=== PATIENT | female | born 1945 | race Caucasian/White ===

== ENCOUNTER 2018-07-10 06:41 | Day surgery (SDC) | payer MEDICARE ==
[~2018-07-10] VITALS: Ht 160 cm; Wt 168.6 kg
[2018-07-10 07:00] VITALS: BP 153/69
[2018-07-10] MEDS ORDERED: cefazolin/dext.iso 2gm/100ml 100 ML IV ONE (07:10)
[2018-07-10] MEDS ORDERED: normal saline 1000ml 1,000 ML IV PRN (07:10)
[2018-07-10] MEDS ORDERED: LEVO175T2 PO (07:35)
[2018-07-10] MEDS ORDERED: ALBU8.5H8 INH (07:35)
[2018-07-10] MEDS ORDERED: GABA-532 PO (07:35)
[2018-07-10] MEDS ORDERED: LANTUS SQ (07:35)
[2018-07-10] MEDS ORDERED: FURO40TA4 PO (07:35)
[2018-07-10] MEDS ORDERED: PANT40TA4 PO (07:35)
[2018-07-10] MEDS ORDERED: HYDR-4070 PO (07:35)
[2018-07-10] MEDS ORDERED: ATOR40TA PO (07:35)
[2018-07-10] MEDS ORDERED: LEVO200T8 PO (07:35)
[2018-07-10] MEDS ORDERED: INSU100I8 SQ (07:35)
[2018-07-10] MEDS ORDERED: AMLO-314 PO (07:35)
[2018-07-10] MEDS ORDERED: DOXA2TAB6 PO (07:35)
[2018-07-10] MEDS ORDERED: LABE100T5 PO (07:35)
[2018-07-10] MEDS ORDERED: NITR0.4T48 SL (07:35)
[2018-07-10] MEDS ORDERED: LISI-600 PO (07:35)
[2018-07-10] MEDS ORDERED: ISOS60TA4 PO (07:35)
[2018-07-10] MEDS ORDERED: HYDR-3972 PO (07:35)
[2018-07-10] MEDS ORDERED: LIDOcaine 1%/PF 5ML 10 MG/ML VIAL ONE (08:42)
[2018-07-10] MEDS ORDERED: fentaNYL/PF 50MCG/1 ML 2ML syringe IV PRN (08:45)
[2018-07-10] MEDS ORDERED: LIDOcaine 1%/PF 5ML 10 MG/ML VIAL SQ ONE (08:45)
[2018-07-10] MEDS ORDERED: heparin 1,000 units/ml 10ml inj ICATH ONE (08:45)
[2018-07-10] MEDS ORDERED: cefazolin/dext.iso 2gm/50ml 50 ML IV ONE (08:46)
[2018-07-10] MEDS ORDERED: heparin 1,000unit/ml 10ml vial 10 ML ONE (08:50)
[2018-07-10] MEDS ORDERED: fentaNYL/PF 50MCG/1 ML 2ML syringe ONE (08:50)
[2018-07-10 09:49] VITALS: BP 137/61
[2018-07-10 10:00] VITALS: BP 138/85
[2018-07-10 10:15] VITALS: BP 126/86
[2018-07-10 10:30] VITALS: BP 134/83
== END 2018-07-10 11:05 | disposition home or self-care (01) ==
LOC: SSTAY O 06:41
PROVIDERS: ATTEND Radiology Diagnostic Radiology
DX: T82.898A Other specified complication of vascular prosthetic devices, implants and grafts, initial encounter (principal); Y83.8 Other surgical procedures as the cause of abnormal reaction of the patient, or of later complication, without mention of misadventure at the time of the procedure; I12.0 Hypertensive chronic kidney disease with stage 5 chronic kidney disease or end stage renal disease; N18.6 End stage renal disease; E11.22 Type 2 diabetes mellitus with diabetic chronic kidney disease; E03.9 Hypothyroidism, unspecified; Z98.51 Tubal ligation status; Z90.710 Acquired absence of both cervix and uterus; Z98.890 Other specified postprocedural states; Z79.899 Other long term (current) drug therapy; Z88.8 Allergy status to other drugs, medicaments and biological substances; Z79.4 Long term (current) use of insulin
CPT/HCPCS: 36581; 77001; 82948; C1750; C1769; J0690; J1644; J2001; J3010; J7030; A9270

== ENCOUNTER 2018-10-16 17:35 | Inpatient (IN) | payer MEDICARE, OTHER ==
[~2018-10-16] VITALS: Ht 157.5 cm; Wt 161.8 kg
[~2018-10-16 17:35] MED LIST: ALBU8.5H8 INH; AMLO-314 PO; ATOR40TA PO; DOXA2TAB6 PO; FURO40TA4 PO; GABA-532 PO; HYDR-3972 PO; HYDR-4070 PO; INSU100I8 SQ; ISOS60TA4 PO; LABE100T5 PO; LANTUS SQ; LEVO175T2 PO; LISI-600 PO; NITR0.4T48 SL; PANT40TA4 PO
[2018-10-16 20:22] LABS: BASOPHILS # (AUTO) 0.1 X10'3 (0-0.2); BASOPHILS % (AUTO) 0.7 % (0-1); EOSINOPHILS # (AUTO) 0.2 X10'3 (0-0.9); EOSINOPHILS % (AUTO) 2.2 % (0-6); HEMATOCRIT 37.6 % (35.0-45.0); HEMOGLOBIN 12.5 g/dl (12.0-16.0); LYMPHOCYTES # (AUTO) 1.2 X10'3 (1.1-4.8); LYMPHOCYTES % (AUTO) 12.6 % (21-51); MEAN CORPUSCULAR HEMOGLOBIN 31.2 PG (27.0-31.0); MEAN CORPUSCULAR HGB CONC 33.3 g/dL (33.0-36.5); MEAN CORPUSCULAR VOLUME 93.7 FL (78-98); MEAN PLATELET VOLUME 7.8 FL (7.4-10.4); MONOCYTES # (AUTO) 1.1 X10'3 (0-0.9); NEUTROPHILS # (AUTO) 7.1 X10'3 (1.8-7.7); NEUTROPHILS % (AUTO) 73.5 % (42-75); PLATELET COUNT 215 X10'3 (140-440); RED BLOOD COUNT 4.01 X10'6 (4.20-5.60); RED CELL DISTRIBUTION WIDTH 17.9 % (11.5-14.5); WHITE BLOOD COUNT 9.6 X10'3 (4.5-11.0)
[2018-10-16 20:25] LABS: ALANINE AMINOTRANSFERASE 23 U/L (12-78); ALBUMIN 3.4 G/DL (3.4-5.0); ALBUMIN/GLOBULIN RATIO 0.9 (1.1-1.5); ALKALINE PHOSPHATASE 111 IU/L (46-116); ANION GAP 10 (8-16); ASPARTATE AMINO TRANSFERASE 13 U/L (10-37); BILIRUBIN,TOTAL 0.4 MG/DL (0.1-1.0); BLOOD UREA NITROGEN 61 MG/DL (7-18); BUN/CREATININE RATIO 8.6 (6.6-38.0); CALCIUM 9.4 MG/DL (8.5-10.1); CHLORIDE 100 MMOL/L (99-107); CREATININE 7.13 MG/DL (0.40-0.90); GLUCOSE 289 MG/DL (70-104); POTASSIUM 5.2 MMOL/L (3.5-5.1); SODIUM 136 MMOL/L (135-145); TOTAL CARBON DIOXIDE 25.9 MMOL/L (24-32); TOTAL PROTEIN 7.4 G/DL (6.4-8.2); eGFR 6 ML/MIN
[2018-10-16 20:27] LABS: MAGNESIUM 2.4 MG/DL (1.5-2.4)
--- NOTE | 2018-10-16 20:35 | NUR ---
RIGHT UPPER CHEST DUAL LUMEN HD PORT; 1 INCH INCISION WELL APPROXIMATED: SUPERIOR TO PAULINA CATH; RIGHT BASE OF NECK VERY SMALL INSION WELL APPROXIMATED PATIENT STATED THAT HD CATHETER WAS BLEEDING TODAY: DRSG CHANGED AT DIALYSIS TODAY : PATIENT CAN NOT TOLERATED TEGADERMS: IRRITATES HER SKIN. PER PATIENT SHE HAS HAD 7 PAULINA CATHETERS FOR HD PLACED SINCE MARCH 2018 PER DIALYSIS RECORDS: CATH FLOW WAS ADMINISTERED ON 10/02 AND 10/14/2018
[2018-10-16 21:05] LABS: PHOSPHORUS 5.9 MG/DL (2.3-4.5)
[2018-10-16] MEDS ORDERED: acetaminophen 650mg rectal suppository RC PRN (21:40)
[2018-10-16] MEDS ORDERED: glucagon, human recombinant 1mg kit SUBCUT PRN (21:40)
[2018-10-16] MEDS ORDERED: ondansetron/PF 4mg/2ml inj IV PRN (21:40)
[2018-10-16] MEDS ORDERED: MESSAGE TO PHARMACY PO ONE (21:40)
[2018-10-16] MEDS ORDERED: bisacodyl 10mg suppository rectal RC PRN (21:40)
[2018-10-16] MEDS ORDERED: dextrose ORAL solution 15 GM/59 ML bottle PO PRN ×2 (21:40)
[2018-10-16] MEDS ORDERED: insulin Lispro (HumaLOG) vial - multi-dose SQ SCH (21:40)
[2018-10-16] MEDS ORDERED: acetaminophen 325mg tablet PO PRN (21:40)
[2018-10-16] MEDS ORDERED: dextrose 50%-water 50ml dispensing syringe IV PRN ×2 (21:40)
[2018-10-16 22:14] LABS: PARTIAL THROMBOPLASTIN TIME 30 SECONDS (22-32)
[2018-10-17 03:00] VITALS: BP 150/40
[2018-10-17 06:00] VITALS: BP 120/35
[2018-10-17 06:01] LABS: ALBUMIN 2.8 G/DL (3.4-5.0); ANION GAP 12 (8-16); BASOPHILS % (AUTO) 0.7 % (0-1); BLOOD UREA NITROGEN 63 MG/DL (7-18); BUN/CREATININE RATIO 8.9 (6.6-38.0); CALCIUM 8.7 MG/DL (8.5-10.1); CHLORIDE 103 MMOL/L (99-107); CREATININE 7.09 MG/DL (0.40-0.90); EOSINOPHILS # (AUTO) 0.2 X10'3 (0-0.9); EOSINOPHILS % (AUTO) 3.4 % (0-6); GLUCOSE 198 MG/DL (70-104); HEMATOCRIT 33.6 % (35.0-45.0); HEMOGLOBIN 11.4 g/dl (12.0-16.0); LYMPHOCYTES # (AUTO) 1.4 X10'3 (1.1-4.8); MAGNESIUM 2.4 MG/DL (1.5-2.4); MEAN CORPUSCULAR HEMOGLOBIN 31.3 PG (27.0-31.0); MEAN CORPUSCULAR HGB CONC 33.8 g/dL (33.0-36.5); MEAN CORPUSCULAR VOLUME 92.7 FL (78-98); MEAN PLATELET VOLUME 7.2 FL (7.4-10.4); MONOCYTES # (AUTO) 0.9 X10'3 (0-0.9); MONOCYTES % (AUTO) 12.3 % (2-12); NEUTROPHILS # (AUTO) 4.7 X10'3 (1.8-7.7); NEUTROPHILS % (AUTO) 64.6 % (42-75); PHOSPHORUS 5.8 MG/DL (2.3-4.5); PLATELET COUNT 199 X10'3 (140-440); RED BLOOD COUNT 3.63 X10'6 (4.20-5.60); RED CELL DISTRIBUTION WIDTH 17.7 % (11.5-14.5); SODIUM 140 MMOL/L (135-145); TOTAL CARBON DIOXIDE 25.3 MMOL/L (24-32); WHITE BLOOD COUNT 7.3 X10'3 (4.5-11.0); eGFR 6 ML/MIN
[2018-10-17 06:07] LABS: PARTIAL THROMBOPLASTIN TIME 30 SECONDS (22-32)
[2018-10-17 06:20] LABS: POTASSIUM 5.2 MMOL/L (3.5-5.1)
--- NOTE | 2018-10-17 06:35 | NUR ---
Patient in room PCU 3028. I have received report from ROBB Romero and had the opportunity to ask questions and assume patient care. Pt is sleeping. Will continue to monitor.
[2018-10-17] MEDS ORDERED: docusate sod 100mg capsule PO SCH (08:00)
[2018-10-17] MEDS ORDERED: normal saline 1000ml 250 ML IV PRN (08:51)
[2018-10-17] MEDS ORDERED: heparin 1,000unit/ml 10ml vial 10 ML IV ONE (08:51)
[2018-10-17] MEDS ORDERED: heparin 1,000 units/ml 10ml inj HE ONE ×2 (08:55)
[2018-10-17] MEDS ORDERED: PHO667C PO (10:13)
[2018-10-17] MEDS ORDERED: NYST60PO2 TP (10:23)
[2018-10-17] MEDS ORDERED: normal saline 1000ml 1,000 ML IV SCH (10:36)
[2018-10-17] MEDS ORDERED: LIDOcaine 1%/PF 5ML 10 MG/ML VIAL SQ ONE (10:40)
[2018-10-17] MEDS ORDERED: midazolam 2 mg/2 ml injection IV PRN (10:40)
[2018-10-17] MEDS ORDERED: heparin 1,000 units/ml 10ml inj ICATH ONE (10:40)
[2018-10-17] MEDS ORDERED: fentaNYL/PF 50MCG/1 ML 2ML syringe IV PRN (10:40)
[2018-10-17 11:00] VITALS: BP 161/49
[2018-10-17] MEDS ORDERED: tPA-cathflo 2 MG/2 ml IV flush IVF ONE (13:50)
[2018-10-17 15:00] VITALS: BP 198/64
--- NOTE | 2018-10-17 15:52 | NUR ---
DM consult: Pt with A1c 8.5 seen at bedside provided with written DM ed with referral to outpatient DM class and RD contact information. Pt receiving HD at the time of RD visit. Pt admit for new placement of HD cath. Pt currently on renal CHO controlled diet documented with 50% PO intake at lunch. Pt reports no food allergies but dislikes cheese, d/w dietary. [facility] 10/16. Pt currently with active discharge orders. Will continue to follow. Recommendations: 1) Continue renal CHO controlled diet 2) Monitor need for ONS 3) Wt per rx Addendum: 10/17/18 at [address] Amended: Links added.
[2018-10-17 18:00] VITALS: BP 127/50
--- NOTE | 2018-10-17 18:01 | NUR ---
Problems reprioritized. Patient report given, questions answered & plan of care reviewed with ROBB Salinas.
--- NOTE | 2018-10-17 18:34 | NUR ---
Patient in room PCU 3028. I have received report from Linda ZAMUDIO and had the opportunity to ask questions and assume patient care.
--- NOTE | 2018-10-17 19:10 | NUR ---
Patient stable prior to DC. Patient packet was sent with patient, list of medications. IV was removed, bands were cut off, and all her belongings were sent down with her via wheelchair by me. She was safely transferred to her sister's car.
[2018-10-17] MEDS ORDERED: insulin glargine (Lantus) pen - multi-dose SQ SCH (21:00)
[2018-10-19 09:10] LABS: HBSAG SCREEN Negative (Negative)
== END 2018-10-17 19:05 | disposition home or self-care (01) | DRG 314 ==
LOC: ER 17:35 → PCU 3S 23:49
PROVIDERS: ADMIT Internal Medicine Critical Care Medicine; ATTEND Internal Medicine Critical Care Medicine
PROC: 0J2TXYZ Change Other Device in Trunk Subcutaneous Tissue and Fascia, External Approach (ICD-10-PCS; principal; 2018-10-17)
PROC: 5A09357 Assistance with Respiratory Ventilation, Less than 24 Consecutive Hours, Continuous Positive Airway Pressure (ICD-10-PCS; 2018-10-17)
PROC: 5A1D70Z Performance of Urinary Filtration, Intermittent, Less than 6 Hours Per Day (ICD-10-PCS; 2018-10-17)
PROC: 3E03317 Introduction of Other Thrombolytic into Peripheral Vein, Percutaneous Approach (ICD-10-PCS; 2018-10-17)
DX: T82.41XA Breakdown (mechanical) of vascular dialysis catheter, initial encounter (principal); N18.6 End stage renal disease; I13.2 Hypertensive heart and chronic kidney disease with heart failure and with stage 5 chronic kidney disease, or end stage renal disease; I87.1 Compression of vein; Z68.44 Body mass index [BMI] 60.0-69.9, adult; T82.49XA Other complication of vascular dialysis catheter, initial encounter; E66.01 Morbid (severe) obesity due to excess calories; E11.22 Type 2 diabetes mellitus with diabetic chronic kidney disease; E78.5 Hyperlipidemia, unspecified; I50.9 Heart failure, unspecified; Y83.8 Other surgical procedures as the cause of abnormal reaction of the patient, or of later complication, without mention of misadventure at the time of the procedure; Z79.4 Long term (current) use of insulin; Z79.899 Other long term (current) drug therapy; Z86.73 Personal history of transient ischemic attack (TIA), and cerebral infarction without residual deficits; Z90.710 Acquired absence of both cervix and uterus; Z99.2 Dependence on renal dialysis; Z88.6 Allergy status to analgesic agent; Z98.51 Tubal ligation status; Y92.89 Other specified places as the place of occurrence of the external cause
CPT/HCPCS: 36415; 36581; 71045; 77001; 80048; 80053; 82948; 83036; 83735; 84100; 85025; 85610; 85730; 86885; 86900; 86901; 87081; 87340; 94660; 94760; 99285; A9270; C1750; C1769; G0257; G0378; J1644; J1815; J2997; J3010; J7030; Q9967

== ENCOUNTER 2019-02-16 08:31 | Day surgery (SDC) | payer OTHER ==
[~2019-02-16] VITALS: Ht 157.5 cm; Wt 157.0 kg
[~2019-02-16 08:31] MED LIST changes: -GABA-532 PO; +NYST60PO2 TP; +PHO667C PO
[2019-02-16 09:00] VITALS: BP 156/49
[2019-02-16] MEDS ORDERED: normal saline 1000ml 1,000 ML IV PRN (09:10)
[2019-02-16] MEDS ORDERED: ZITTEL BALM TOP (09:48)
[2019-02-16] MEDS ORDERED: ACET-2144 PO (09:48)
[2019-02-16] MEDS ORDERED: ASPI162T PO (09:48)
[2019-02-16] MEDS ORDERED: GABA300C PO (09:48)
[2019-02-16] MEDS ORDERED: APIX2.5T PO (09:48)
[2019-02-16] MEDS ORDERED: fentaNYL/PF 50MCG/1 ML 2ML syringe ONE (10:29)
[2019-02-16] MEDS ORDERED: midazolam 2 mg/2 ml injection ONE (10:29)
[2019-02-16] MEDS ORDERED: heparin 1,000 UNITS/NS 500ml 500 ML ONE (10:33)
[2019-02-16] MEDS ORDERED: iohexol 300mg/ml 100ml inj. ONE ×2 (10:33→11:14)
[2019-02-16] MEDS ORDERED: LIDOcaine 1%/PF 5ML 10 MG/ML VIAL ONE (10:33)
[2019-02-16] MEDS ORDERED: anticoagulant citrate dextrose (ACD) 1000ml solution IV ONE (11:45)
[2019-02-16 12:12] VITALS: BP 120/78
[2019-02-16 12:30] VITALS: BP 118/70
[2019-02-16 12:45] VITALS: BP 100/57
[2019-02-16 13:00] VITALS: BP 118/50
== END 2019-02-16 13:10 | disposition home or self-care (01) ==
LOC: SSTAY O 08:31
PROVIDERS: ATTEND Radiology Diagnostic Radiology
DX: T82.858A Stenosis of other vascular prosthetic devices, implants and grafts, initial encounter (principal); E11.22 Type 2 diabetes mellitus with diabetic chronic kidney disease; I13.2 Hypertensive heart and chronic kidney disease with heart failure and with stage 5 chronic kidney disease, or end stage renal disease; I50.9 Heart failure, unspecified; N18.6 End stage renal disease; G47.30 Sleep apnea, unspecified; Z99.2 Dependence on renal dialysis; Z86.73 Personal history of transient ischemic attack (TIA), and cerebral infarction without residual deficits; Y83.2 Surgical operation with anastomosis, bypass or graft as the cause of abnormal reaction of the patient, or of later complication, without mention of misadventure at the time of the procedure; Y92.89 Other specified places as the place of occurrence of the external cause; Z90.710 Acquired absence of both cervix and uterus; Z98.51 Tubal ligation status; Z98.890 Other specified postprocedural states; Z88.8 Allergy status to other drugs, medicaments and biological substances; Z79.899 Other long term (current) drug therapy
CPT/HCPCS: 36902; 99152; 99153; J1644; J2250; J3010; J7030; Q9967; C1725; C1769; C1894